=== PATIENT | male | born 1985 | race Caucasian/White ===

== ENCOUNTER 2016-10-04 22:22 | Emergency (ER) | payer SELFPAY ==
[2016-10-04 22:30] VITALS: BP 114/68; BMI 22.8
--- NOTE | 2016-10-04 23:20 | DR.GENAD ---
HPI - PCP Primary Care Physician: OLIVIA - Complaint/Symptoms Chief Complaint Doctors Comments: Patient states that he got bitten by something while at work four days ago. The right knee became swollen-he started taking bactrim and is out. Denies fever, Chief Complaint:: PT HAS ABCESS TOO RT KNEE RED WARM TOO TOUCH HAS BEEN DRAINING RT LOWER LEG SWELLING - Source History Provided: Patient - Mode of Arrival Mode of Arrival: Ambulatory - Timing Onset of Chief Complaint: 09/26/16 PMH - PMH Past Medical History: No Past Surgical History: No Surgical History: No History - Family History History of Family Medical Conditions: Yes Family Medical History: Cancer - Social History Type of Tobacco Use: None Does any household member use tobacco: No Alcohol Use: None Do you use any recreational Drugs:: Yes (THC) Lives With: Family Lives Where: Home - infectious screening In the last 2 months have you had wt loss of >10#?: NO Have you had fever, night sweats or hemotysis?: No Have you traveled outside the country in the last 6 months?: No Isolation: Standard ROS - Review of Systems Constitutional: Diaphoresis Eyes: No Symptoms Reported ENTM: No Symptoms Reported Respiratoy: No Symptoms Reported Cardiovascular: No Symptoms Reported Gastrointestinal/Abdominal: No Symptoms Reported Genitourinary: No Symptoms Reported Neurological: No Symptoms Reported Musculoskeletal: No Symptoms Reported, Right (knee, excoriated skin right patella 3cm circular lesion), Knee Integumentary: No Symptoms Reported Hematologic/Lymphatic: No Symptoms Reported Endocrine: No Symptoms Reported Psychiatric: No Symptoms Reported All Other Systems: Reviewed and Negative PE - Vital Signs Vitals: Temperature 98.4 F Pulse Rate 100 Respiratory Rate 18 Blood Pressure [Right Arm] 114/55 Blood Pressure 114/68 O2 Sat by Pulse Oximetry 100 - General General Appearance: In No Apparent Distress - Head Head Exam: Normal Inspection, Atraumatic - Eyes Eye exam: Normal Appearance, PERRL, EOMI - ENT ENT Exam: Normal Exam External Ear Exam: Normal External Inspection TM/Canal Exam: Bilateral Normal Nose Exam: Normal Nose Exam Mouth Exam: Normal Inspection Throat Exam: Normal Inspection - Neck Neck Exam: Normal Inspection - Chest Chest Inspection: Normal Inspection - Respiratory Respiratory Exam: Normal Lung Sounds Bilat Respiratory Exam: Bilateral Clear to Auscultation - Cardiovascular Cardiovascular Exam: Regular Rate, Normal Rhythm - Abdominal Exam Abdominal Exam: Normal Inspection, Normal Bowel Sounds Abdominal Tenderness: negative: RUQ, RLQ, LUQ, LLQ, Epigastrium, Suprapubic, Diffuse, Mild, Moderate, Severe, Other - Extremities Extremities Exam: Other (right knee with excoriated skin with erythemamtous lesion, not warm th tough) - Back Back Exam: Normal Inspection, Full ROM - Neurologic Neurological Exam: Alert, Oriented X3, CN II-XII Intact - Psychiatric Psychiatric Exam: Normal Affect, Normal Mood - Skin Skin Exam: Warm, Dry - Diagnosis Discharge Problem: Cellulitis of right knee - Discharge Plan Condition: Stable - Follow ups/Referrals Follow ups/Referrals: Mark Ibrahim [Primary Care Provider] - 3 days - Instructions
== END 2016-10-04 23:31 | disposition home or self-care (01) ==
LOC: ER 22:22
DX: L03.115 Cellulitis of right lower limb (principal)
CPT/HCPCS: 99281; 99282

== ENCOUNTER 2016-10-08 22:50 | Emergency (ER) | payer SELFPAY ==
[2016-10-08 23:21] VITALS: BMI 24.3
[2016-10-08 23:58] LABS: BASOPHILS % (AUTO) 0.2 % (0.2-1.0); EOSINOPHILS # (AUTO) 0.1 x10^3/uL (0.0-0.2); HEMATOCRIT 44.8 % (42.0-54.0); HEMOGLOBIN 15.3 g/dL (13.5-18.0); LYMPHOCYTES # (AUTO) 1.5 X10^3/uL (1.3-2.9); LYMPHOCYTES % (AUTO) 19.6 % (21.0-51.0); MEAN CORPUSCULAR HEMOGLOBIN 31.3 pg (27.0-34.0); MEAN CORPUSCULAR HGB CONC 34.2 g/dL (33.0-35.0); MEAN CORPUSCULAR VOLUME 91.3 fL (80.0-100.0); MEAN PLATELET VOLUME 7.6 fL (7.4-11.0); MONOCYTES # (AUTO) 0.9 x10^3/uL (0.3-0.8); NEUTROPHILS # (AUTO) 5.3 x10^3/uL (2.2-4.8); NEUTROPHILS % (AUTO) 68.2 % (42.0-75.0); PLATELET COUNT 276 X10^3/uL (150.0-450.0); RED BLOOD COUNT 4.91 X10^6/uL (4.7-6.0); WHITE BLOOD COUNT 7.8 X10^3/uL (3.6-10.0)
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
[2016-10-09 00:06] LABS: SALICYLATE < 2.8 mg/dL (2.8-20)
[2016-10-09 00:12] LABS: ALANINE AMINOTRANSFERASE 82 Units/L (12-78); ALBUMIN 4.3 g/dL (3.4-5.0); ALKALINE PHOSPHATASE 87 Units/L (46-116); ASPARTATE AMINO TRANSFERASE 65 Units/L (15-37); BLOOD UREA NITROGEN 14 mg/dL (7-18); CALCIUM 8.6 mg/dL (8.5-10.1); CHLORIDE 102 mmol/L (98-107); CREATININE 1.32 mg/dL (0.70-1.30); GLUCOSE 75 mg/dL (65-99); SODIUM 139 mmol/L (136-145); TOTAL PROTEIN 8.3 g/dL (6.4-8.2); eGFR BLACK RACES > 60 (>60); eGFR NON BLACK RACES > 60 (>60)
[2016-10-09 00:15] LABS: BILIRUBIN,URINE 1+ (NEGATIVE); BLOOD/HEMOGLOBIN,URINE 2+ (NEGATIVE); GLUCOSE, URINE NEGATIVE (NEGATIVE); KETONES,URINE 1+ (NEGATIVE); LEUKOCYTE ESTERASE ,URINE 1+ (NEGATIVE); NITRITES,URINE NEGATIVE (NEGATIVE); PROTEIN,URINE 2+ (NEGATIVE); UROBILINOGEN,URINE 1+ (NORMAL)
[2016-10-09 00:16] LABS: APPEARANCE,URINE CLEAR (CLEAR); COLOR,URINE YELLOW (YELLOW)
[2016-10-09 00:16] LABS: BLOOD ALCOHOL < 3 mg/dL (0-19.9)
[2016-10-09 00:23] LABS: RBC,URINE 0-3 /HPF (NEGATIVE)
[2016-10-09 00:24] LABS: AMORPHOUS SEDIMENT,UR 1+ /HPF (NEGATIVE); BACTERIA,URINE TRACE /HPF (NEGATIVE); MUCUS,URINE FEW /HPF (NEGATIVE); SQUAMOUS EPITHELIAL CELL,UR FEW /HPF (NEGATIVE)
[2016-10-09] MEDS ORDERED: NS 1000 ML 300 ML IV ONE (01:08)
[2016-10-09] MEDS ORDERED: ROCEPHIN VIAL 2 GM IM NR (07:00)
[2016-10-09 07:24] VITALS: BP 110/68
--- NOTE | 2016-10-09 07:41 | RAD ---
HISTORY: Swelling, insect bite Study: AP and lateral right knee Comparison: None Findings: No evidence for acute cortical disruption or dislocation. The medial and lateral tibiofemoral compar tments appear unremarkable without loss of significant joint space. The lateral radiograph fails to demonstrate significant joint effusion. Patellofemoral compartment is normal in its appearance. ther e is prepatellar and suprapatellar soft tissue swelling. IMPRESSION: 1. Prepatellar and suprapatellar soft tissue swelling 2. No definite bone or joint abnormality Reported By:
[2016-10-09] MEDS ORDERED: BACTRIM DS TAB PO SCH (08:00)
[2016-10-09] MEDS ORDERED: ROCEPHIN VIAL 2 GM 2 GM in NS 50 ML IV + SPIKE MINIBAG* 50 ML IV ONE (08:25)
[2016-10-09] MEDS ORDERED: ROCEPHIN VIAL 2 GM ONE (08:30)
[2016-10-09] MEDS ORDERED: NS 1000 ML 1,000 ML ONE (08:30)
== END 2016-10-09 15:35 ==
LOC: ER 22:50
DX: R44.0 Auditory hallucinations (principal); L03.115 Cellulitis of right lower limb; F19.10 Other psychoactive substance abuse, uncomplicated; Z79.891 Long term (current) use of opiate analgesic
CPT/HCPCS: 36415; 73560; 80053; 80307; 80320; 81001; 85025; 93005; 96365; 96367; 96374; 99285; A4222; G0434; G6038; G6039; G6040; J0696

== ENCOUNTER 2017-02-19 19:55 | Emergency (ER) | payer SELFPAY ==
[2017-02-19 20:01] VITALS: BP 135/90; BMI 22.8
[2017-02-19] MEDS ORDERED: AUGMENTIN 500 MG/125 MG TAB PO ONE ×2 (20:28→20:41)
--- NOTE | 2017-02-19 20:32 | DR.TOOTHHP ---
HPI - Time Seen Time seen: 20:29 - Primary Care Physician Primary Care Physician: MARINA ZIMMERMAN - HPI Comment HPI Comment: Complains of infection in right upper molars for 2-3 days getting worst today. States the filling came out of one of his tooth and he is trying to get back to his dentist to have his tooth filled but is afraid that he has an infection and wants antibiotics until he can go to the dentist. He denies fever, chills, nasuea or vomiting. States he is a patient of Dr. Zimmerman in [place] and goes to a local dentist but cannot recall his name presently. States the pain is 8 of 10 and it has been trobbing at times. He denies cold, cough, hemoptysis or sore throat. states he was unable to go to work due to the pain. - Complaints Chief Complaint:: "TOOTH IS INFECTED AND I NEED SOMETHING FOR THE INFECTION SO THEY CAN PULL IT. I MISSED WORK TODAY. THE DENTIST CAN'T SEE ME TILL NEXT WEEK. " - Reviewed Nurses Notes Reviewed: Yes - Source History Provided: Patient - Mode of Arrival Mode of Arrival: Ambulatory - Timing Onset of Chief Complaint: 02/19/17 - Severity Pain Severity: Moderate - Location Location:: Right, Upper - Context Onset:: Spontaneous, Previous Caries History Of: None - Modifying Factors Worsens:: Cold, Chewing Improves:: Analgesics not used - Associated Signs and Symptoms Associated signs and symptoms: None PMH - PMH Past Medical History: Yes Past Medical History: Anxiety Past Surgical History: Yes Surgical History: No History - Family History History of Family Medical Conditions: Yes Family Medical History: Cancer - Social History Does patient currently use any type of tobacco product: No Have you used tobacco products in the last 12 months: No Type of Tobacco Use: None Do you use any recreational Drugs:: Yes Lives With: Family Lives Where: Home - infectious screening Have you traveled outside the country in the last 6 months?: No Isolation: Standard ROS - Review of Systems Constitutional: No Symptoms Reported. negative: See HPI, Chills, Diaphoresis, Fever, Malaise, Weakness, Irritable, Fatigue, Loss of Appetite, Other Eyes: No Symptoms Reported ENTM: No Symptoms Reported, Nose Congestion, Mouth Pain. negative: See HPI, Ear Pain, Ear Discharge, Pulling on Ears, Hearing Loss, Nose Pain, Nose Discharge, Epistaxis, Mouth Swelling, Loose Teeth, Drooling, Throat Pain, Throat Swelling, Ear Foreign Body Respiratoy: No Symptoms Reported. negative: See HPI, Productive Cough, Non- Productive Cough, Moist Cough, Dry Cough, Hacking Cough, Barking Cough, Brassy Cough, Orthopnea, Short of Breath, Stridor, Wheezing, Hemoptysis, Other Cardiovascular: No Symptoms Reported Gastrointestinal/Abdominal: No Symptoms Reported. negative: See HPI, Abdominal Pain, Constipation, Diarrhea, Nausea, Vomiting, Food Intolerance, Other Genitourinary: No Symptoms Reported Neurological: No Symptoms Reported. negative: See HPI, Anxiety, Depressed, Emotional Problems, Headache, Numbness, Paresthesia, Pre-existing Deficit, Seizure, Tingling, Tremors, Weakness, Dizziness, Problems Walking, Speech Problem, Other Musculoskeletal: No Symptoms Reported Integumentary: No Symptoms Reported. negative: See HPI, Change in Color, Change in Hair/Nails, Dryness, Lesions, Lumps, Rash, Itching, Wound, Bruises, Juandice, Other Hematologic/Lymphatic: No Symptoms Reported Endocrine: No Symptoms Reported Psychiatric: No Symptoms Reported. negative: See HPI, Anxiety, Depression, Hallucinations, Excessive crying, Suicidal, Other PE - Vital Signs Vitals: Temperature 98.8 F Pulse Rate 130 Respiratory Rate 18 Blood Pressure [Right Arm] 110/68 Blood Pressure 135/90 O2 Sat by Pulse Oximetry 99 - General Limitations: No Limitations General Appearance: Alert, In No Apparent Distress. negative: Appears Intoxicated, Anxious, Lethargic, Obtunded, In Distress, Obese, Cachectic, Other - Head Head Exam: Normal Inspection, Atraumatic, Normocephalic - Eyes Eye exam: Normal Appearance, PERRL, EOMI. negative: Scleral Icterus, Conjunctival Injection, Nystagmus, Miosis, Mydrasis, Periorbital Swelling, Periorbital Tenderness, Other - ENT ENT Exam: Normal Exam, Normal Oropharynx, Normal External Ear Exam, Mucous Membranes Moist, TM's Normal Bilaterally External Ear Exam: Normal External Inspection TM/Canal Exam: Bilateral Normal Nose Exam: Normal Nose Exam Mouth Exam: Normal Inspection Teeth Exam: Normal Inspection, Dental Caries, Fractured Tooth # (13), Dental Tenderness #, Gingival Swelling Throat Exam: Normal Inspection - Diagnosis Discharge Problem: Toothache, Dental caries - Discharge Plan Disposition: HOME, SELF-CARE Condition: Stable Prescriptions: Amoxicillin 500 mg PO TID #30 cap - Follow ups/Referrals Follow ups/Referrals: NFD,None [Primary Care Provider] - 3 days - Instructions Instructions: Dental Care and Dentist Visits, Dental Caries
== END 2017-02-19 20:45 | disposition home or self-care (01) ==
LOC: ER 20:05
DX: K02.9 Dental caries, unspecified (principal); K08.89 Other specified disorders of teeth and supporting structures
CPT/HCPCS: 99282